=== PATIENT | male | born 1960 | race Caucasian/White ===

== ENCOUNTER 2018-02-11 07:20 | Day surgery (SDC) | payer BC ==
[2018-02-11] VITALS (7 sets, daily range): BP systolic 105–122; BP diastolic 63–83; PULSE 52–64; TEMP 97.4–97.8
[~2018-02-11] VITALS: Ht 172.7 cm; Wt 81.8 kg
[2018-02-11] MEDS ORDERED: NAMENDA 10MG TA10 MG PO (07:57)
[2018-02-11] MEDS ORDERED: ARICEPT10 MG PO (07:58)
[2018-02-11] MEDS ORDERED: TIROSINT50 MC1 PO (07:59)
[2018-02-11] MEDS ORDERED: MASON NATURAL1200 MG PO (07:59)
[2018-02-11] MEDS ORDERED: CYANOCOBAL1000 MCG/M IM (08:00)
[2018-02-11] MEDS ORDERED: NORCO 325 MG-51 TAB PO (12:41)
== END 2018-02-11 14:55 | disposition home or self-care (01) ==
LOC: SDCO 07:20
DX: K40.90 Unilateral inguinal hernia, without obstruction or gangrene, not specified as recurrent (principal); G30.9 Alzheimer's disease, unspecified; G31.09 Other frontotemporal neurocognitive disorder; F32.9 Major depressive disorder, single episode, unspecified; Z88.8 Allergy status to other drugs, medicaments and biological substances; Z80.0 Family history of malignant neoplasm of digestive organs; Z82.49 Family history of ischemic heart disease and other diseases of the circulatory system
CPT/HCPCS: C1781; J0690; J1100; J1885; J2405; J2704; J3010; J7120